=== PATIENT | female | born 1950 | race Caucasian/White ===

== ENCOUNTER 2017-03-24 12:43 | Emergency (ER) | payer OTHER, MEDICARE ==
[~2017-03-24] VITALS: Ht 162.6 cm; Wt 64.9 kg
[2017-03-24 12:54] VITALS: BP_SYST 119
[2017-03-24 13:33] LABS: EOSINOPHILS % (AUTO) 0.3 % (0.0-4.0); HEMATOCRIT 42.9 % (36-48); LYMPHOCYTES # (AUTO) 2.5 K/uL (1.0-5.5); LYMPHOCYTES % (AUTO) 22.7 % (20.5-51.5); MEAN CORPUSCULAR HEMOGLOBIN 28 pg (27-31); MEAN CORPUSCULAR HGB CONC 33 % (32-36); MEAN CORPUSCULAR VOLUME 85 fL (79.0-98.0); MONOCYTES # (AUTO) 1.4 K/uL (0.0-1.0); MONOCYTES % (AUTO) 12.7 % (1.7-9.3); PLATELET COUNT (AUTO) 339 K/uL (130-430); RED BLOOD CELL COUNT(AUTO) 5.06 MIL/uL (4.2-6.2); RED CELL DISTRIBUTION WIDTH 16.3 % (9.0-15.0); WHITE BLOOD COUNT (AUTO) 10.9 K/uL (4.8-10.8)
[2017-03-24 13:42] LABS: CALCIUM 9.5 mg/dL (8.4-11.0); CREATININE 0.88 mg/dL (0.55-1.30); POTASSIUM 3.5 mmol/L (3.5-5.1)
[2017-03-24 13:44] LABS: BASOPHILS % (AUTO) 0.2 % (0.0-2.0); NEUTROPHILS % (AUTO) 64.1 % (40.0-70.0)
[2017-03-24 13:45] LABS: ALBUMIN 3.4 g/dL (3.4-4.8); TOTAL BILIRUBIN 0.4 mg/dL (0.0-1.0); TOTAL PROTEIN, SERUM 6.8 g/dL (6.4-8.3)
[2017-03-24] MEDS ORDERED: methylPREDNISolone SOD SUCC/PF 62.5 MG/ML VIAL IVP ONE (14:00)
[2017-03-24 14:31] LABS: BILIRUBIN,URINE NEGATIVE (NEGATIVE); BLOOD, URINE NEGATIVE (NEGATIVE); CLARITY/URINE CLEAR (CLEAR); COLOR,URINE YELLOW (YELLOW); GLUCOSE,URINE NEGATIVE (NEGATIVE); KETONES,URINE TRACE (NEGATIVE); LEUKOCYTE ESTERASE ,URINE NEGATIVE (NEGATIVE); NITRITE, URINE NEGATIVE (NEGATIVE); PROTEIN URINE NEGATIVE (NEGATIVE); UROBILINOGEN,URINE 0.2 (0.2-1.0)
[2017-03-24 15:40] VITALS: BP_SYST 114
== END 2017-03-24 15:40 | disposition home or self-care (01) ==
LOC: SED 12:43
DX: K58.1 Irritable bowel syndrome with constipation (principal); J44.9 Chronic obstructive pulmonary disease, unspecified; Z98.51 Tubal ligation status; Z90.710 Acquired absence of both cervix and uterus; Z88.1 Allergy status to other antibiotic agents
CPT/HCPCS: 36415; 74000; 80053; 81003; 82272; 83690; 85025; 94640; 96374; 99285; J2930

== ENCOUNTER 2017-11-19 10:30 | Inpatient (IN) | payer OTHER, MEDICARE ==
[~2017-11-19] VITALS: Ht 167.6 cm; Wt 71.7 kg
[~2017-11-19 10:30] MED LIST: ALBMDI INH; FAMO20TA8 PO; IPRA4AER INH; PRO40 PO; TRAZ-126 PO
[2017-11-19] MEDS ORDERED: ALVIMOPAN 12 MG CAPSULE PO ONE (10:58)
[2017-11-19] MEDS ORDERED: ALBUTEROL SULFATE 0.083% 2.5 MG/3 ML VIAL.NEB INH ONE ×4 (12:00→15:00)
[2017-11-19] MEDS ORDERED: CLINDAMYCIN 600 mg/50mL D5W 50 ML IV ONE (12:40)
[2017-11-19] MEDS ORDERED: ONDANSETRON HCL 4 MG/2 ML VIAL IVP PRN ×2 (12:45→14:45)
[2017-11-19] MEDS ORDERED: fentaNYL CITRATE/PF 100 MCG/2 ML AMP IVP PRN ×2 (12:45)
[2017-11-19] MEDS ORDERED: ROCURONIUM BROMIDE 10 MG/ML (ZEMURON) IV ONE (13:02)
[2017-11-19] MEDS ORDERED: fentaNYL CITRATE/PF 100 MCG/2 ML AMP IVP ONE (13:02)
[2017-11-19] MEDS ORDERED: PROPOFOL 200MG/ 20ML VIAL (DIPRIVAN) IV ONE (13:02)
[2017-11-19] MEDS ORDERED: MIDAZOLAM HCL 5 MG/5 ML VIAL IVP ONE (13:02)
[2017-11-19] MEDS ORDERED: SEVOFLURANE 15 MIN GAS INH ONE (13:02)
[2017-11-19] MEDS ORDERED: NEOSTIGMINE METHYLSULFATE 1 MG/ML, 10 ML VIAL IVP ONE (13:02)
[2017-11-19] MEDS ORDERED: DEXAMETHASONE SOD PHOSPHATE 4 MG/ML VIAL IVP ONE (13:02)
[2017-11-19] MEDS ORDERED: NS IRRIG SOLN 1000 ML IR ONE (13:02)
[2017-11-19] MEDS ORDERED: ONDANSETRON HCL 4 MG/2 ML VIAL IVP ONE (13:02)
[2017-11-19] MEDS ORDERED: GLYCOPYRROLATE 0.2 MG/ML VIAL IJ ONE (13:02)
[2017-11-19] MEDS ORDERED: methylPREDNISolone SOD SUCC/PF 62.5 MG/ML VIAL IVP ONE (13:02)
[2017-11-19] MEDS ORDERED: ACETAMINOPHEN 325 MG TABLET PO PRN (14:45)
[2017-11-19] MEDS ORDERED: HYDROmorphone 1 MG INJ. 1 MG/ML AMPUL IVP PRN (14:45)
[2017-11-19] MEDS ORDERED: HYDROcodone/ACETAMIN 5-325 MG TAB (NORCO/ VICODIN) PO PRN (14:45)
[2017-11-19] MEDS ORDERED: fentaNYL CITRATE/PF 100 MCG/2 ML AMP ONE (15:14)
[2017-11-19 16:15] VITALS: BP_SYST 140
[2017-11-19] MEDS ORDERED: PROMETHAZINE HCL 25 MG/ML AMP IM PRN (17:00)
[2017-11-19] MEDS ORDERED: MEPERIDINE HCL/PF 50 MG/ML AMP IM PRN (17:00)
[2017-11-19] MEDS: D5/0.45 NS 1,000 ML IV SCH ×2 (17:43→23:15)
[2017-11-19] MEDS ORDERED: ALBUTEROL MDI INHALATION 8 GM INH INH SCH (18:30)
[2017-11-19] MEDS ORDERED: IPRATROPIUM/ALBUTEROL SULFATE 120 PUFFS/4 GM INH INH SCH (18:30)
[2017-11-19 18:55] VITALS: BP_SYST 138
[2017-11-19] MEDS ORDERED: PANTOPRAZOLE SODIUM 40 MG TAB PO ONE (19:00)
[2017-11-19 20:00] VITALS: BP_SYST 136
[2017-11-19] MEDS: CLINDAMYCIN 600 MG in D5W 50 ML IV SCH ×2 (20:25→23:15)
[2017-11-19] MEDS ORDERED: traZODone HCL 50 MG TABLET (DESYREL) PO SCH (21:00)
[2017-11-19] MEDS ORDERED: FAMOTIDINE 20 MG TABLET PO SCH (21:00)
[2017-11-19] MEDS: HYDROcodone/ACETAMIN 5-325 MG TAB (NORCO/ VICODIN) PO PRN (23:28)
[2017-11-20 00:10] VITALS: BP_SYST 126
[2017-11-20] MEDS: IPRATROPIUM/ALBUTEROL SULFATE 3 ML AMPUL.NEB INH PRN ×2 (07:59→14:10)
[2017-11-20 08:20] VITALS: BP_SYST 101
[2017-11-20] MEDS: HYDROcodone/ACETAMIN 5-325 MG TAB (NORCO/ VICODIN) PO PRN ×2 (08:23→14:32)
[2017-11-20] MEDS ORDERED: PANTOPRAZOLE SODIUM 40 MG TAB PO SCH (09:00)
[2017-11-20] MEDS ORDERED: FAMOTIDINE 20 MG TABLET PO SCH (09:00)
[2017-11-20] MEDS ORDERED: ENOXAPARIN SODIUM 30 MG/0.3 ML SYRINGE SUBCUT SCH (09:00)
[2017-11-20 12:43] VITALS: BP_SYST 103
[2017-11-20 14:52] VITALS: BP_SYST 103
[2017-11-20] MEDS ORDERED: HYDR-1189 (15:32)
[2017-11-20] MEDS ORDERED: HYDR-1189 PO ×2 (15:36→15:37)
[2017-11-20 16:31] VITALS: BP_SYST 90
== END 2017-11-20 18:02 | disposition home health service (06) | DRG 330 ==
LOC: SMU 10:30 → EDSTATUS 13:50 → SMU 16:00
PROVIDERS: ADMIT Colon & Rectal Surgery; ATTEND Colon & Rectal Surgery
PROC: 0DNU4ZZ Release Omentum, Percutaneous Endoscopic Approach (ICD-10-PCS; 2017-11-19)
PROC: 0D1B4Z4 Bypass Ileum to Cutaneous, Percutaneous Endoscopic Approach (ICD-10-PCS; principal; 2017-11-19 13:50)
DX: K59.8 Other specified functional intestinal disorders (principal); J44.1 Chronic obstructive pulmonary disease with (acute) exacerbation; B02.9 Zoster without complications; J45.909 Unspecified asthma, uncomplicated; F17.200 Nicotine dependence, unspecified, uncomplicated; Z82.3 Family history of stroke; Z87.01 Personal history of pneumonia (recurrent); Z87.440 Personal history of urinary (tract) infections; Z87.11 Personal history of peptic ulcer disease; Z90.710 Acquired absence of both cervix and uterus; Z90.49 Acquired absence of other specified parts of digestive tract; Z83.3 Family history of diabetes mellitus; Z83.79 Family history of other diseases of the digestive system; Z88.8 Allergy status to other drugs, medicaments and biological substances; Z79.899 Other long term (current) drug therapy
CPT/HCPCS: 87081; 94640; 94760; A5061; J1100; J1650; J2175; J2250; J2405; J2550; J2704; J2710; J2930; J3010; J3490; J7060; J7120

== ENCOUNTER 2017-12-07 21:23 | Emergency (ER) | payer OTHER, MEDICARE ==
[~2017-12-07] VITALS: Ht 165.1 cm; Wt 64.4 kg
[~2017-12-07 21:23] MED LIST changes: +HYDR-1189 PO
[2017-12-07 21:25] VITALS: BP_SYST 134
[2017-12-07 22:43] VITALS: BP_SYST 131
== END 2017-12-07 22:43 | disposition home or self-care (01) ==
LOC: SED 21:23
DX: K91.89 Other postprocedural complications and disorders of digestive system (principal); R10.84 Generalized abdominal pain; J44.9 Chronic obstructive pulmonary disease, unspecified; R03.0 Elevated blood-pressure reading, without diagnosis of hypertension; Z88.1 Allergy status to other antibiotic agents; Z79.899 Other long term (current) drug therapy
CPT/HCPCS: 74021; 99284

== ENCOUNTER 2018-01-31 17:55 | Emergency (ER) | payer OTHER, MEDICARE ==
[~2018-01-31] VITALS: Ht 165.1 cm; Wt 65.3 kg
[2018-01-31 17:55] VITALS: BP_SYST 141
--- NOTE | 2018-01-31 17:55 | NUR ---
Assisted out of car with wheelchair. Pt c/o weakness and dark red stool from colostomy since last night. Patient to ER bed 08 to gown for evaluation. Side rails up. Report given to NEEL Rangel.
--- NOTE | 2018-01-31 18:10 | NUR ---
# 20 gauge angiocath placed to RAC. Use of asceptic technique. Opsite placed over site. Blood return noted. Blood for lab drawn from site. Flushed with 10 cc of normal saline. No evidence of infiltration noted. Patient tolerated well.
--- NOTE | 2018-01-31 18:20 | NUR ---
Stool sample collected from colostomy bag and sent to lab.
--- NOTE | 2018-01-31 18:29 | NUR ---
Dr. King at bedside.
[2018-01-31 18:40] LABS: HEMATOCRIT 38.1 % (36-48); HEMOGLOBIN 12.7 g/dL (12.0-16.0); MEAN CORPUSCULAR HEMOGLOBIN 27 pg (27-31); MEAN CORPUSCULAR HGB CONC 33 % (32-36); MEAN CORPUSCULAR VOLUME 81 fL (79.0-98.0); PLATELET COUNT (AUTO) 258 K/uL (130-430); RED CELL DISTRIBUTION WIDTH 19.1 % (9.0-15.0); WHITE BLOOD COUNT (AUTO) 12.7 K/uL (4.8-10.8)
--- NOTE | 2018-01-31 18:41 | NUR ---
German ordoñez in ED - 01/31/18 at 1841 by [email or web address] Attempted In/Out cath, no urine to bag.
[2018-01-31 18:51] LABS: CALCIUM 8.4 mg/dL (8.4-11.0); CREATININE 0.53 mg/dL (0.55-1.30); POTASSIUM 4.6 mmol/L (3.5-5.1)
[2018-01-31 18:54] LABS: INR 0.9 (0.8-1.2); PROTHROMBIN TIME 9.5 SECS (9.5-12.5)
[2018-01-31 18:57] LABS: ALBUMIN 3.2 g/dL (3.4-4.8); TOTAL BILIRUBIN 0.6 mg/dL (0.0-1.0)
--- NOTE | 2018-01-31 19:00 | NUR ---
Pt report given to NEEL Griffith.
[2018-01-31 19:10] LABS: BAND % (MANUAL) 10 % (0-6); BASOPHILS % (MANUAL) 0 % (0-2); EOSINOPHILS % (MANUAL) 0 % (0-7); LYMPHOCYTES % (MANUAL) 2 % (20-46); MONOCYTES % (MANUAL) 5 % (0-11)
[2018-01-31] MEDS ORDERED: PROCHLORPERAZINE EDISYLATE 10 MG/2 ML VIAL IVP ONE (19:30)
--- NOTE | 2018-01-31 20:15 | NUR ---
ED MD King at bedside reassessing patient
[2018-01-31 20:40] VITALS: BP_SYST 138
--- NOTE | 2018-01-31 20:40 | NUR ---
Patient given written and verbal discharge instructions and verbalizes understanding. ER MD discussed with patient the results and treatment provided. Patient in stable condition. ID arm band removed. IV catheter removed intact and dressing applied, no active bleeding. No Rx given. Patient educated on pain management and to follow up with PMD. Pain Scale 2/10 tolerable for patient. Opportunity for questions provided and answered. Medication side effect fact sheet provided.
== END 2018-01-31 20:40 | disposition home or self-care (01) ==
LOC: SED 17:55
DX: G89.29 Other chronic pain (principal); R10.84 Generalized abdominal pain; J44.9 Chronic obstructive pulmonary disease, unspecified; Z88.1 Allergy status to other antibiotic agents; Z79.899 Other long term (current) drug therapy; Z98.890 Other specified postprocedural states
CPT/HCPCS: 36415; 71045; 80053; 82550; 83880; 84484; 85007; 85027; 85610; 85730; 86886; 86900; 86901; 93005; 96374; 99285; J0780